=== PATIENT | male | born 1975 | race Caucasian/White ===

== ENCOUNTER 2024-06-15 11:59 | Emergency (ER) | payer SELFPAY ==
[~2024-06-15 11:59] MED LIST: Iopamidol 370 76% 100 ML VIAL ONE
[2024-06-15] MEDS ORDERED: Ondansetron PF 4 MG/2 ML Vial ONE (12:08)
[2024-06-15] MEDS ORDERED: Ketorolac Tromethamine 30 MG (1 mL) VIAL ONE (12:08)
[2024-06-15] MEDS ORDERED: Sodium Chloride 0.9% 1,000 ML ONE ×2 (12:08→13:11)
[2024-06-15 12:17] LABS: #Basophils 0.1 thou/uL (0.0-0.2); #Eosinophils 0.2 thou/uL (0.0-0.7); #Lymphocytes 2.5 thou/uL (1.20-3.40); #Monocytes 0.6 thou/uL (0.11-0.59); #Neutrophils 4.2 thou/uL (1.40-6.50); %Basophils 1.2 % (0.0-1.0); %Eosinophils 2.7 % (0.0-10.0); %Lymphocytes 32.5 % (21.0-51.0); %Monocytes 8.5 % (0.0-10.0); %Neutrophils 55.1 % (42.0-75.0); Hematocrit 45.8 % (42.0-52.0); Mean Corpuscular HGB CONC 32.7 g/dL (32.0-36.0); Mean Corpuscular Volume 85.5 fl (78.0-98.0); Mean Platelet Volume 8.1 fL (7.4-10.4); Platelet Count 310 10x3/uL (130-400); RBC Distribution Width 11.2 % (11.5-14.5); Red Blood Cell (RBC) Count 5.36 mill/uL (4.70-6.10); White Blood Cell (WBC) Count 7.6 10x3/uL (4.8-10.8)
[2024-06-15] MEDS ORDERED: Morphine 4 MG/ML VIAL ONE ×2 (12:19→13:11)
[2024-06-15 12:34] LABS: ALT (SGPT) 49 U/L (8-55); AST (SGOT) 32 U/L (5-34); Albumin 4.3 g/dL (3.5-5.0); Alkaline Phosphatase 80 U/L (40-110); Anion Gap 16 mmol/L (10-20); BUN (Urea Nitrogen) 21 mg/dL (8.9-20.6); Bilirubin, Total 0.6 mg/dL (0.2-1.2); Calc. Creatinine Clearance 0 mL/min (70-130); Calcium 10.4 mg/dL (7.8-10.44); Carbon Dioxide 26 mmol/L (22-29); Chloride 102 mmol/L (98-107); Estimated GFR 60; Globulin 3.1 g/dL (2.4-3.5); Glucose 136 mg/dL (70-105); Lipase 12 U/L (8-78); Potassium 3.9 mmol/L (3.5-5.1); Protein, Total 7.4 g/dL (6.0-8.3); Sodium 140 mmol/L (136-145); Troponin I Less than 0.010 ng/mL (< 0.028)
[2024-06-15] MEDS ORDERED: fentaNYL 50 mcg/mL 1 mL Vial ONE (12:39)
[2024-06-15 15:22] LABS: Bilirubin Negative (Negative); Blood, Urine Small (Negative); Clarity Clear (Clear); Glucose, Urine (Dipstick) 100 mg/dL (Negative); Ketone, Urine 15 mg/dL (Negative); Leukocyte Negative (Negative); Nitrite Negative (Negative); Protein, Urine (Dipstick) Negative (Neg-Trace); Urobilinogen 0.2 mg/dL (Less than 2)
[2024-06-15 15:23] LABS: Squamous Epithelial 0-3 HPF (0-3)
== END 2024-06-15 15:53 | disposition home or self-care (01) ==
LOC: NAV ERS 11:59
DX: N13.2 Hydronephrosis with renal and ureteral calculous obstruction (principal); R10.31 Right lower quadrant pain; I10 Essential (primary) hypertension
CPT/HCPCS: 74177; 80053; 81001; 83690; 84484; 85025; 94760; 96374; 96375; 96376; J1885; J2272; J2405; J3010; J7030; Q9967